=== PATIENT | female | born 2000 | race Caucasian/White ===

== ENCOUNTER 2023-07-06 22:30 | Emergency (ER) | payer BC ==
[2023-07-06 23:32] LABS: #Basophils 0.1 thou/uL (0.0-0.2); #Eosinphils 0.1 thou/uL (0.0-0.7); #Monocytes 0.7 thou/uL (0.11-0.59); #Neutrophils 5.9 thou/uL (1.40-6.50); %Basophils 0.6 % (0.0-1.0); %Eosinophils 0.6 % (0.0-10.0); %Lymphocytes 29.8 % (21.0-51.0); %Monocytes 7.7 % (0.0-10.0); Mean Corpuscular HGB CONC 33.3 g/dL (32.0-36.0); Mean Corpuscular Hemoglobin 29.4 pg (27.0-31.0); Mean Corpuscular Volume 88.2 fl (78.0-98.0); Platelet Count 317 10x3/uL (130-400); RBC Distribution Width 13.4 % (11.5-14.5); Red Blood Cell (RBC) Count 4.42 mill/uL (4.20-5.40); White Blood Cell (WBC) Count 9.7 10x3/uL (4.8-10.8)
[2023-07-06 23:54] LABS: ALT (SGPT) 9 U/L (8-55); AST (SGOT) 13 U/L (5-34); Acetaminophen Less than 10 mcg/mL (10.0-30.0); Albumin 4.6 g/dL (3.5-5.0); Alcohol Less than 10.0 mg/dL (Less than 10); Alkaline Phosphatase 61 U/L (40-110); Anion Gap 15 mmol/L (10-20); BUN (Urea Nitrogen) 16 mg/dL (7.0-18.7); Bilirubin, Total 0.3 mg/dL (0.2-1.2); Calc. Creatinine Clearance 0 mL/min (70-130); Calcium 9.4 mg/dL (7.8-10.44); Carbon Dioxide 21 mmol/L (22-29); Chloride 107 mmol/L (98-107); Estimated GFR 96; Globulin 2.7 g/dL (2.4-3.5); Glucose 92 mg/dL (70-105); Potassium 4.4 mmol/L (3.5-5.1); Protein, Total 7.3 g/dL (6.0-8.3); Salicylate Less than 8.0 mg/dL (15.0-30.0); Sodium 139 mmol/L (136-145)
[2023-07-07 01:41] LABS: Bacteria/HPF 2+ HPF (None Seen); Bilirubin Negative (Negative); Blood, Urine Trace (Negative); CAUTI Indications for Culture Dysuria,urgency,freq; Clarity Turbid (Clear); Glucose, Urine (Dipstick) Normal (Negative); Ketone, Urine Negative (Negative); Leukocyte 25 Leu/uL (Negative); Nitrite Negative (Negative); Protein, Urine (Dipstick) Negative (Neg-Trace); RBC/HPF 0-3 HPF (0-3); Specific Gravity, Urine 1.006 (1.002-1.036); Urobilinogen Normal mg/dL (Less than 2); WBC/HPF 0-3 HPF (0-3); pH, Urine 5.5 (5.0-9.0)
[2023-07-07 01:43] LABS: Pregnancy Test - Urine (BHCG) Negative (Negative); Pregu Control Background? CLEAR/WHITE (CLR/WHITE); Pregu Control Bar Appear? YES (CONTROL BAR); Specific Gravity 1.006 (1.002-1.036); Urine Culture Reflex No No
[2023-07-07 01:48] LABS: Amphetamine Not Detected (NotDetected); Barbiturates Screen Not Detected (NotDetected); Benzodiazepine Screen Not Detected (NotDetected); Cocaine Metabolite Screen Not Detected (NotDetected); Methadone Not Detected (NotDetected); Methamphetamine Not Detected (NotDetected); Opiate Screen Not Detected (NotDetected); Oxycodone Screen Not Detected (NotDetected); Phencyclidine (PCP) Not Detected (NotDetected); THC/Cannabinoid Screen Not Detected (NotDetected); Tricyclic Screen Not Detected (NotDetected)
[2023-07-07] MEDS ORDERED: Cephalexin 250 MG CAP ONE (04:38)
== END 2023-07-07 14:00 ==
LOC: EEVIPCON 22:30 → ERS 22:30
DX: R45.851 Suicidal ideations (principal)
CPT/HCPCS: 36415; 80053; 80306; 80307; 81001; 81025; 85025; 93005